=== PATIENT | female | born 1970 | race African-American/Black ===

== ENCOUNTER 2018-09-12 22:24 | Emergency (ER) | payer MEDICAID, MEDICARE ==
[~2018-09-12] VITALS: Ht 177.8 cm; Wt 91.0 kg
[2018-09-13] MEDS ORDERED: IBUPROFEN 600MG TABLET PO ONE (01:15)
[2018-09-13] MEDS ORDERED: TETANUS, DIPHTHERIA, PERTUSSIS VAC/PF 0.5ML (>7YR OLD) IM ONE (01:45)
[2018-09-13 05:57] VITALS: BP 121/75
== END 2018-09-13 05:59 | disposition home or self-care (01) ==
LOC: ER 22:53
DX: S01.81XA Laceration without foreign body of other part of head, initial encounter (principal); S09.8XXA Other specified injuries of head, initial encounter; F20.9 Schizophrenia, unspecified; F14.10 Cocaine abuse, uncomplicated; F12.10 Cannabis abuse, uncomplicated; Y00.XXXA Assault by blunt object, initial encounter; Y93.89 Activity, other specified; Y92.018 Other place in single-family (private) house as the place of occurrence of the external cause
CPT/HCPCS: 12011; 70450; 70486; 90471; 90715; 99284; A4217; Z7610